=== PATIENT | female | born 2000 | race Caucasian/White ===

== ENCOUNTER 2021-04-05 21:11 | Emergency (ER) | payer BC ==
[~2021-04-05] VITALS: Ht 165.1 cm; Wt 59.1 kg
[2021-04-05 21:28] VITALS: TEMP 98.7
[2021-04-05 22:04] LABS: BASO # 0.1 K/mm3 (0.0-0.2); BASO % 0.6 % (0.0-2.0); EOS # 0.2 K/mm3 (0.0-0.7); EOS % 1.8 % (0-4.0); GRAN # 5.4 K/mm3 (1.4-6.5); GRAN % 54.4 % (42.2-75.2); HEMOGLOBIN 12.8 g/dl (12.0-15.0); LYMPH # 3.6 K/mm3 (1.2-3.4); LYMPH % 36.2 % (20.0-51.0); MEAN CELL VOLUME 90 fl (80.0-95.0); MEAN CORPUSCULAR HEMOGLOBIN 31 pg (26.0-32.0); MEAN CORPUSCULAR HGB CONC 35 g/dl (33.0-37.0); MEAN PLATELET VOLUME 8.7 fl (7.4-10.4); MONO # 0.7 K/mm3 (0.1-0.6); MONO % 6.7 % (1.7-9.3); PLATELET COUNT 198 K/mm3 (130-400); RED BLOOD COUNT 4.11 M/mm3 (4.10-5.30); REDCELL DISTRIBUTION WIDTH-CV 11.5 % (11.5-14.5)
[2021-04-05 22:20] LABS: ALBUMIN 3.4 gm/dL (3.5-5.0); BILIRUBIN,TOTAL 0.2 mg/dL (0.2-1.2); CALCIUM 9.2 mg/dL (8.4-10.2); CREATININE, serum 0.73 mg/dL (0.57-1.11); POTASSIUM 3.9 mmol/L (3.5-4.5); TOTAL PROTEIN 6.3 gm/dL (6.2-8.1)
[2021-04-06] MEDS ORDERED: MEDROL 4MG DOSPA4 MG PO (00:01)
[2021-04-06 00:33] VITALS: BP 111/61; PULSE 80
== END 2021-04-06 00:35 | disposition home or self-care (01) ==
LOC: COL.ER 21:11
PROVIDERS: Nurse Practitioner
DX: R07.89 Other chest pain (principal)
CPT/HCPCS: J1885; J7512; Q9967